=== PATIENT | male | born 1940 | race Caucasian/White ===

== ENCOUNTER 2018-06-06 16:35 | Inpatient (IN) ==
[2018-06-07] MEDS ORDERED: *HR* Dextrose 50 % in Water (Syg) 50 ML SYRINGE IVP PRN (18:31)
[2018-06-07] MEDS ORDERED: Dextrose Gel 15 GM/37.5 ML TUBE PO PRN ×2 (18:31)
[2018-06-07] MEDS ORDERED: D5% in Water 1,000 ML IVC PRN (18:31)
[2018-06-07] MEDS: Insulin LISPRO 300 UNITS/3 ML VIAL SQ SCH (22:37)
[2018-06-08 05:44] LABS: Basophils % 0.4 %; Eosinophils # 0.4 K/mcL (0.0-0.6); Eosinophils % 3.2 %; Hematocrit 29.9 % (37.5-50.1); Hemoglobin 9.2 g/dL (12.9-16.9); Immature Granulocytes % 0.6 % (0-4); Lymphocytes # 0.7 K/mcL (0.6-4.6); Lymphocytes % 6.6 %; Mean Corpuscular HGB Conc 30.8 g/dL (31.6-35.5); Mean Corpuscular Hemoglobin 27.5 pg (28.0-33.3); Mean Corpuscular Volume 89.3 fL (83.0-100.0); Mean Platelet Volume 11.4 fL (9.4-12.4); Monocytes # 1.6 K/mcL (0.0-1.3); Monocytes % 14.5 %; Neutrophils # 8.3 K/mcL (1.6-8.9); Platelet Count 251 K/mcL (140-400); Red Blood Count 3.35 M/mcL (4.19-5.50); Red Cell Distribution Width 16.1 % (11.5-14.5); Segmented Neutrophils % 74.7 %
[2018-06-08 05:49] LABS: INR 1.2; Prothrombin Time 13.8 Seconds (9.4-12.1)
[2018-06-08 06:01] LABS: Alanine Aminotransferase 27 Units/L (7-52); Albumin 3.4 g/dL (3.5-5.7); Alkaline Phosphatase 262 Units/L (34-104); Aspartate Amino Transferase 22 Units/L (13-39); BUN/Creatinine Ratio 41 (6-26); Bilirubin,Total 0.8 mg/dL (0.3-1.0); Blood Urea Nitrogen 43 mg/dL (8-23); Calcium 9.7 mg/dL (8.6-10.3); Carbon Dioxide 36 mEq/L (23-29); Chloride 95 mEq/L (98-107); Globulin 3.5 g/dL (2.4-3.5); Glucose 107 mg/dL (70-105); Osmolality,Calculated 295 (280-300); Potassium 4.3 mEq/L (3.5-5.1); Sodium 137 mEq/L (136-145); Total Protein 6.9 g/dL (6.4-8.9); eGFR For African Americans > 60 (> 60); eGFR For Non-African Americans > 60 (> 60)
[2018-06-08] MEDS: Insulin LISPRO 300 UNITS/3 ML VIAL SQ SCH ×4 (08:03→21:08)
[2018-06-08] MEDS: Furosemide 40 MG TABLET PO SCH (08:17)
[2018-06-08] MEDS: *HR* Metformin 500 MG TABLET PO SCH ×2 (08:17→17:29)
[2018-06-08] MEDS: Ascorbic Acid 500 MG TABLET PO SCH (08:17)
[2018-06-08] MEDS: *HR* Enoxaparin 40 MG/0.4 ML SYRINGE SQ SCH (08:18)
[2018-06-08] MEDS: Multivit/Ca/Min/Fe/FA 1 TAB TABLET PO SCH (08:18)
[2018-06-08] MEDS ORDERED: hydroCHLOROthiazide 25 MG TABLET PO SCH (09:00)
--- NOTE | 2018-06-08 15:55 | Internal Med History&Physical ---
Date of Encounter: 06/08/18 Time of Encounter: 15:42 Assessment and Plan (1) Splenic laceration Current visit: Yes Status: Acute Improving. He is decreased in his physical reserve and will continue with resumption of same. We will consult occupational and physical therapy. Will need to make sure that he has received Pneumovax at some point. Plan for surgery is to have about 14 days before he resumes Coumadin and then 4 days later, discontinue Lovenox. Qualifiers: Encounter type: subsequent encounter Qualified Code(s): S36.039D - Unspecified laceration of spleen, subsequent encounter (2) Atrial fibrillation Current visit: Yes Status: Acute On chronic Coumadin. He apparently has unknown heart failure but will try to find this out from Dr. Childress office. Will check digoxin level in a few days, to see if he is on enough. May need to return to his home dose. Qualifiers: Atrial fibrillation type: chronic Qualified Code(s): I48.2 - Chronic atrial fibrillation (3) Sleep apnea Current visit: Yes Status: Acute Treated with BiPAP, as above and oxygen bleed in at 3 L/m. Qualifiers: Sleep apnea type: unspecified type Qualified Code(s): G47.30 - Sleep apnea , unspecified (4) Pulmonary hypertension Current visit: Yes Status: Acute This sounds related to sleep apnea only but will investigate as possible and follow up with primary M.D. (5) Type 2 diabetes mellitus Current visit: Yes Status: Acute Qualifiers: Diabetes mellitus group home insulin use: without termite renewal inspector use Diabetes mellitus complication status: without complication Qualified Code(s): E11.9 - Type 2 diabetes mellitus without complications (6) Essential hypertension Current visit: Yes Status: Acute We will investigate use of losartan for same. Will follow clinically. (7) Anemia Current visit: Yes Status: Acute This sounds chronic but may be exacerbated by renal insufficiency and by acute blood loss. He probably needs to have a follow-up colonoscopy and I deferred this to primary care physician. Qualifiers: Anemia type: unspecified type Qualified Code(s): D64.9 - Anemia, unspecified (8) Chronic renal insufficiency Current visit: Yes Status: Acute Currently, stage II. Will need to follow and may resolve as he improves in general function. Qualifiers: Chronic kidney disease stage: stage 2 (mild) Qualified Code(s): N18.2 - Chronic kidney disease, stage 2 (mild) (9) Protein calorie malnutrition Current visit: Yes Status: Acute Caused by his acute illness and ileus. Will ask nutrition to evaluate him and consider supplements. Qualifiers: Protein-calorie malnutrition severity: mild Qualified Code(s): E44.1 - Mild protein-calorie malnutrition (10) History of rectal cancer Current visit: Yes Status: Acute Colostomy care per patient. Seemingly, this is stable at current time. Internal Medicine - H&P: HPI Chief complaint: Status post splenic laceration. Admitted From: Home Plans for Post Hospital Care: Home History of present illness: Mr. Hernandez is a 78 year old male who was on Coumadin for A. fib when he tripped at home and was subsequently found to have a splenic laceration. He was transferred from [facility] to [facility] where he underwent an interventional radiology splenic embolization. Coumadin was held. Vitamin K was used to reverse his Coumadin. His postoperative course was complicated by ileus which was treated with low dose but frequent Reglan and erythromycin. This resolved. His anemia worsened while hospitalized and he required 2 units of packed red blood cells. He had a urinary tract infection but this was treated with antibiotics and resolved. He is now transferred to resume home activities with physical therapy, occupational and recreational therapies. Past medical history is reviewed and consist of: Atrial fibrillation for about 10 years, treated with Coumadin. 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 No known valvular complication but he has been noted to have chronic venous stasis as a result. He has CHF or chronic venous stasis treated with Lasix, which he uses on average about one third of the time. He is also on hydrochlorothiazide. There is some question about whether the hydrochlorothiazide was held at his hospitalization. He has hypertension treated with a terminal and losartan although apparently of the losartan has been held while hospitalized. He knows of no splenomegaly or abnormal blood count other than he has had a low hemoglobin for years, for which she takes iron. He has not had upper or lower endoscopy for this. He has sleep apnea of about 8 years duration for which he uses BiPAP at night. He is not sure of the settings but has the home unit with him. With this, he uses oxygen at 3 L bled in. He has known pulmonary hypertension but it is been several years since his last polysomnogram. Transferred here from [facility] still on oxygen at 3 L/m, even during the day. Chronic atrial fib, as above, treated with a beta sofia and digoxin. There was question about his dose, especially as this was decreased with renal insufficiency, upon transfer. He is status post: Cancer which was rectal and involves colectomy, colostomy, chemotherapy, and 28 radiation treatments, about 10 years ago. Pulmonary hypertension is apparently related to sleep apnea and has not been assessed for several years and he is told that he does not need follow-up. Diabetes has been under fairly good control with Glucophage only. He "eats whatever he wants" but does have a history of hypoglycemia before his medications were discontinued or decreased to only Glucophage. He has a 35 pack-year smoking history but stopped in 2004 or before. He drank beer occasionally, never heavily, and had no complications; he stopped this in 2005. He denies use of street drugs. He has been for 53 years with to his who he lives with. 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 Past Med Surg Social Fam HX - Past Medical History Medical history: arthritis, atrial fibrillation, cancer, diabetes, hypertension Additional medical history: rectal cancer 2007, pulmonary htn - Past Surgical History Surgical History: cancer surgery, colostomy Additional surgical history: left side colostomy, left knee replacement, bowel resection - Social History Smoking Status: Former smoker - Family History Brother Living Status: Still Living Hx Family Cardiac Disorders: Yes Grandfather Living Status: Hx Family Cardiac Disorders: Yes Mother Living Status: Hx Family Endocrine Disorder: Yes Internal Medicine - H&P: Meds Allopurinol [Zyloprim 300 MG] 300 mg PO DAILY 06/07/18 [History] Ascorbic Acid [Vitamin C] 500 mg PO DAILY 06/07/18 [History] Atenolol [Tenormin] 25 mg PO DAILY 06/07/18 [History] Digoxin [Lanoxin] 0.125 mg PO Q2D 06/07/18 [History] Enoxaparin [Lovenox] 40 mg SQ DAILY 06/07/18 [History] Ferrous Sulfate [Iron] 325 mg PO BID 06/07/18 [History] Furosemide [Lasix] 40 mg PO DAILY 06/07/18 [History] Losartan [Cozaar] 50 mg PO DAILY 06/07/18 [History] Mv-Mn/FA/Vit K/Lycop/Lut/Coq10 [Daily Multivitamin Capsule] 1 each PO DAILY 06/18 [History] Polyethylene Glycol 3350 [MiraLAX] 17 gm PO DAILY PRN 06/07/18 [History] hydroCHLOROthiazide [Hydrochlorothiazide] 25 mg PO DAILY 06/07/18 [History] metFORMIN [Glucophage] 1,000 mg PO BIDWM 06/07/18 [History] 3 Allergy/AdvReac Type Severity Reaction Status Date / Time No Known Allergies Allergy Verified 06/07/18 17:37 All Systems PM: He has early cataracts in his right eye but has not had eye surgery. Patient has no complaint of chest discomfort, dyspnea, orthopnea, breathing problems, palpitations, nausea or vomiting, constipation or diarrhea, other changes in bowel habits, heartburn, difficulty with urination, kidney problems or kidney stones, fevers chills or sweats, rash or itching, seizures, headache or lightheadedness, heat or cold intolerance, blood problems or anemia, or other new complaints, except as mentioned above. Review of systems is otherwise negative. - Constitutional Vitals: Temp Pulse Resp BP Pulse Ox 98.2 F 66 20 124/62 90 06/08/18 11:27 06/08/18 11:27 06/08/18 11:27 06/08/18 11:27 06/08/18 11:27 Exam: Examination: (Except as mentioned above): General: In no apparent distress, alert and oriented 3. Head: Atraumatic and normocephalic. Eyes: Extraocular muscles are intact, pupils equal round and reactive to light and accommodation. Sclerae anicteric. Ears: External ears are normal to inspection and hearing is grossly normal. Nose: Patent without lesion noted. Mouth: No intraoral lesions seen. Dentition is unremarkable. Neck: Supple with trachea midline. There is no thyromegaly or adenopathy and carotids are 2+ without bruit heard. Respiratory: No use of accessory muscles. Lungs are clear throughout. Normal airflow. Cardiovascular: Irregularly irregular rhythm consistent with atrial fib. There is grade 2-3 holosystolic murmur at the left lower sternal border and apex. No S3 is appreciated. Abdomen: Bowel sounds are normal. No hepatosplenomegaly masses or tenderness. Left lower quadrant colostomy is present and seemingly intact; is functioning well. Obese and therefore difficult to palpate deeply. Patient is examined upright in chair and this also limits exam. Extremities: He has no clubbing. He has cyanosis of calves, ankles, toes which appear chronic. He has chronic venous stasis of both sides. He has 2-3+ pitting edema which also appears chronic. Neurological: A and O 3. Cranial nerves II through XII are intact. No focal deficits and no abnormal movements or postures. Skin: Warm and non-diaphoretic with no lesions noted. Breasts, pelvic and rectal: Not examined. Internal Med - H&P Results - Labs CBC & Chem 7: 06/08/18 05:10 06/08/18 05:10 Labs: Short CBC 06/08/18 Range/Units 05:10 WBC 11.1 (4.3-11.1) K/mcL Hgb 9.2 L (12.9-16.9) g/dL Hct 29.9 L (37.5-50.1) % Plt Count 251 (140-400) K/mcL Neutrophils # 8.3 (1.6-8.9) K/mcL BMP 06/08/18 05:10 Sodium 137 Potassium 4.3 Chloride 95 L Carbon Dioxide 36 H BUN 43 H Creatinine 1.05 Glucose 107 H Calcium 9.7 Liver Function 06/08/18 Range/Units 05:10 Total Bilirubin 0.8 (0.3-1.0) mg/dL AST 22 (13-39) Units/L ALT 27 (7-52) Units/L Alkaline Phosphatase 262 H (34-104) Units/L Albumin 3.4 L (3.5-5.7) g/dL
[2018-06-09] MEDS: Insulin LISPRO 300 UNITS/3 ML VIAL SQ SCH ×4 (07:38→22:06)
[2018-06-09] MEDS: *HR* Enoxaparin 40 MG/0.4 ML SYRINGE SQ SCH (07:55)
[2018-06-09] MEDS: Multivit/Ca/Min/Fe/FA 1 TAB TABLET PO SCH (07:55)
[2018-06-09] MEDS: *HR* Metformin 500 MG TABLET PO SCH ×2 (07:55→17:42)
[2018-06-09] MEDS: Ascorbic Acid 500 MG TABLET PO SCH (07:56)
[2018-06-09] MEDS: Furosemide 40 MG TABLET PO SCH (07:56)
[2018-06-09] MEDS: *HR* Digoxin 0.125 MG TABLET PO SCH (08:05)
--- NOTE | 2018-06-09 10:14 | Internal Med Progress Note ---
Date of Encounter: 06/09/18 Time of Encounter: 10:11 - Assessment and plan (1) Splenic laceration Current Visit: Yes Status: Acute Assessment and plan: Clinically stable. We will continue as planned. Qualifiers: Encounter type: subsequent encounter Qualified Code(s): S36.039D - Unspecified laceration of spleen, subsequent encounter (2) Atrial fibrillation Current Visit: Yes Status: Acute Assessment and plan: We will continue on Coumadin and Lovenox, as planned. Qualifiers: Atrial fibrillation type: chronic Qualified Code(s): I48.2 - Chronic atrial fibrillation (3) Sleep apnea Current Visit: Yes Status: Acute Assessment and plan: On home BiPAP, uncertain settings. No complaints. Qualifiers: Sleep apnea type: unspecified type Qualified Code(s): G47.30 - Sleep apnea , unspecified (4) Pulmonary hypertension Current Visit: Yes Status: Acute Assessment and plan: Clinically stable and apparently related to sleep apnea concerned that some of his heart failure could be pulmonary hypertension with increased right-sided pressures. There is no way to assess this while here, except echocardiogram. Will try to reach photovoltaic solar cell designer office, today. (5) Type 2 diabetes mellitus Current Visit: Yes Status: Acute Assessment and plan: Stable, will follow with sliding scale. Qualifiers: Diabetes mellitus detention insulin use: without detention use Diabetes mellitus complication status: without complication Qualified Code(s): E11.9 - Type 2 diabetes mellitus without complications (6) Essential hypertension Current Visit: Yes Status: Acute Assessment and plan: Clinically stable. We will continue home regimen and follow. (7) Anemia Current Visit: Yes Status: Acute Assessment and plan: Stable, will follow. Qualifiers: Anemia type: unspecified type Qualified Code(s): D64.9 - Anemia, unspecified (8) Chronic renal insufficiency Current Visit: Yes Status: Acute Assessment and plan: Still at mild level. Will give extra dose of Lasix, oral, today following. Qualifiers: Chronic kidney disease stage: stage 2 (mild) Qualified Code(s): N18.2 - Chronic kidney disease, stage 2 (mild) (9) Protein calorie malnutrition Current Visit: Yes Status: Acute Assessment and plan: We will continue as planned. Mild. Qualifiers: Protein-calorie malnutrition severity: mild Qualified Code(s): E44.1 - Mild protein-calorie malnutrition (10) History of rectal cancer Current Visit: Yes Status: Acute Assessment and plan: Apparently stable with good ostomy function. - Subjective Interval history: Patient without any complaints. Ostomy is functioning well. Is just getting involved with therapies. Patient has no complaint of chest discomfort, dyspnea, orthopnea, palpitations, nausea or vomiting, constipation or diarrhea, other changes in bowel habits, difficulty with urination, rash or itching, or other new complaints, except as mentioned above. Review of systems is otherwise negative. - Constitutional Vitals: Temp Pulse Resp BP Pulse Ox 98.0 F 68 16 116/65 96 06/09/18 07:25 06/09/18 07:25 06/09/18 07:25 06/09/18 07:25 06/09/18 07:25 Exam: Examination: (Except as mentioned above): General: In no apparent distress. Alert and oriented 3. Nondiaphoretic. Head: Atraumatic and normocephalic. Respiratory: No use of accessory muscles. Lungs are clear throughout. Normal airflow. Cardiovascular: Regular rate and rhythm without murmur appreciated. Abdomen: Bowel sounds are normal. No hepatosplenomegaly mass or tenderness appreciated. Obese and therefore difficult to palpate deeply. Patient is examined upright in chair and this also limits exam. Extremities: No cyanosis or clubbing. Has worsening edema than yesterday. Now 3-4+. Violaceous changes no different from yesterday. Skin: Warm and non-diaphoretic with 2 small stage II decubitus ulcers at sacral region. One is small measuring about 1 x 0.5 x 0.1, at the coccyx. Another is larger and linear with a complement of tear. It is at the coccygeal region but about a centimeter lateral to the coccyx. It measures roughly 3 x 0.5 x 0.2 cm. There is no surrounding erythema or edema to suggest infection. Internal Medicine: Result - Labs CBC & Chem 7: 06/08/18 05:10 06/08/18 05:10 - ABG Interpretation ABG results: PT/INR, D-dimer PT 13.8 Seconds (9.4-12.1) H 06/08/18 05:10 Consult Discharge Plan - Plan Referrals: Alfonso Quiñonez CNP [Primary Care Provider] -
[2018-06-09 10:32] LABS: Bilirubin,Urine Negative (Negative); Blood,Urine Negative (Negative); Clarity,Urine Clear (Clear); Color,Urine Yellow (Yellow); Glucose,Urine (UA) Normal (Normal); Ketones,Urine Negative (Negative); Leukocyte Esterase,Urine Moderate (Negative); Nitrite,Urine Negative (Negative); PH,Urine 5.5 pH Units (5.0-8.0); Protein,Urine Trace mg/dL (Neg-Trace); Urobilinogen,Urine Normal (Normal)
[2018-06-09] MEDS ORDERED: Furosemide 40 MG TABLET PO ONE (10:45)
[2018-06-09 12:15] LABS: Bacteria,Urine Few per hpf (None-Few); Hyaline Casts,Urine Few per lpf (None-Few); Squamous Epithelial Cell,Urine Few per lpf (None-Few)
[2018-06-10] MEDS: Multivit/Ca/Min/Fe/FA 1 TAB TABLET PO SCH (10:05)
[2018-06-10] MEDS: Ascorbic Acid 500 MG TABLET PO SCH (10:05)
[2018-06-10] MEDS: *HR* Metformin 500 MG TABLET PO SCH ×2 (10:05→18:19)
[2018-06-10] MEDS: *HR* Enoxaparin 40 MG/0.4 ML SYRINGE SQ SCH (10:06)
[2018-06-10] MEDS: Insulin LISPRO 300 UNITS/3 ML VIAL SQ SCH ×4 (10:06→21:26)
--- NOTE | 2018-06-10 13:42 | Internal Med Progress Note ---
Date of Encounter: 06/10/18 Time of Encounter: 13:40 - Assessment and plan (1) Atrial fibrillation Current Visit: Yes Status: Acute Assessment and plan: rate and rythm stable. continue current meds. Qualifiers: Atrial fibrillation type: chronic Qualified Code(s): I48.2 - Chronic atrial fibrillation (2) Pulmonary hypertension Current Visit: Yes Status: Acute Assessment and plan: stable. monitor. f/u with cardiology as scheduled (3) Type 2 diabetes mellitus Current Visit: Yes Status: Acute Assessment and plan: controlled. monitor FSBS. continue insulin per sliding scale. will adjust as necessary. Qualifiers: Diabetes mellitus intermodal customer service insulin use: without intermodal customer service use Diabetes mellitus complication status: without complication Qualified Code(s): E11.9 - Type 2 diabetes mellitus without complications (4) Essential hypertension Current Visit: Yes Status: Acute Assessment and plan: controlled with current meds. monitor BP. - Time Spent With Patient less than 15 minutes - Subjective Interval history: participating with therapy. denies SOB with exertion. on RA with O2 sats 96%. denies chest pain, fever, chills, NVD. states swelling in BLE much improved. - Constitutional Vitals: Temp Pulse Resp BP Pulse Ox 98.0 F 72 16 112/64 94 06/10/18 07:11 06/10/18 07:11 06/10/18 07:11 06/10/18 07:11 06/10/18 07:11 General appearance: Present: A&O X 3, pleasant, obese, answers questions appropriately - Head Head exam: Present: atraumatic, normocephalic - Eye Eye exam: Present: PERRL, conjuntiva pink, sclera anicteric Pupils: Present: PERRL - Neck Neck exam general surgery: Present: supple, trachea midline. Absent: lymphadenopathy - Respiratory Respiratory exam: Present: decreased breath sounds, CTAB. Absent: accessory muscle use, rales, rhonchi, wheezes - Cardiovascular Cardiovascular exam: Present: RRR, +S1, +S2. Absent: diastolic murmur, gallop, rubs, systolic murmur - GI/Abdominal GI/Abdominal exam: Present: normal bowel sounds, soft, no peritoneal signs. Absent: distended, tenderness - Extremities Exam Extremities exam: Present: warm, radial pulses palpable and symmetrical. Absent : calf tenderness, cyanotic, pedal edema Additional comments: BLE edema nonpitting, dry and scaly - Neurological Exam Neurological exam: Present: CN II-XII intact, oriented X3, no focal deficits. Absent: pronater drift, facial droop, speech deficit - Skin Skin exam: Present: dry, intact Internal Medicine: Result - Labs CBC & Chem 7: 06/08/18 05:10 06/08/18 05:10 - ABG Interpretation ABG results: PT/INR, D-dimer PT 13.8 Seconds (9.4-12.1) H 06/08/18 05:10 Consult Discharge Plan - Plan Referrals: Alfonso Quiñonez, AIRPORT PLANNER [Primary Care Provider] -
[2018-06-11] MEDS: Insulin LISPRO 300 UNITS/3 ML VIAL SQ SCH ×4 (08:11→20:38)
[2018-06-11] MEDS: Ascorbic Acid 500 MG TABLET PO SCH (08:55)
[2018-06-11] MEDS: *HR* Metformin 500 MG TABLET PO SCH ×2 (08:55→16:51)
[2018-06-11] MEDS: *HR* Enoxaparin 40 MG/0.4 ML SYRINGE SQ SCH (08:55)
[2018-06-11] MEDS: Multivit/Ca/Min/Fe/FA 1 TAB TABLET PO SCH (08:55)
[2018-06-11] MEDS: *HR* Digoxin 0.125 MG TABLET PO SCH (09:04)
--- NOTE | 2018-06-11 13:25 | Internal Med Progress Note ---
Date of Encounter: 06/11/18 Time of Encounter: 13:22 - Assessment and plan (1) Splenic laceration Current Visit: Yes Status: Acute Assessment and plan: No acute issues. She denies any current discomforts. Patient to continue with physical therapy. Continue with current medications. Qualifiers: Encounter type: subsequent encounter Qualified Code(s): S36.039D - Unspecified laceration of spleen, subsequent encounter (2) Atrial fibrillation Current Visit: Yes Status: Chronic Assessment and plan: No acute issues. Patient with irregular heart rate with controlled rate less than 100. We will continue with current medications. Qualifiers: Atrial fibrillation type: chronic Qualified Code(s): I48.2 - Chronic atrial fibrillation (3) Pulmonary hypertension Current Visit: Yes Status: Chronic Assessment and plan: Patient with complaints of dyspnea after ambulating greater than 30 feet. Respiratory effort is relaxed while at rest. Patient continues with supplemental oxygen and will wean O2 to maintain saturation greater than 88%. We will obtain chest x-ray for evaluation. Patient denies any productive cough or fever/chills (4) Type 2 diabetes mellitus Current Visit: Yes Status: Chronic Assessment and plan: No acute issues. We will continue with fingersticks and sliding scale coverage. We will continue with current indication regimen. Qualifiers: Diabetes mellitus rn long term care insulin use: without assisted use Diabetes mellitus complication status: without complication Qualified Code(s): E11.9 - Type 2 diabetes mellitus without complications (5) Essential hypertension Current Visit: Yes Status: Chronic Assessment and plan: Vital signs are stable. We will continue with current medications. - Time Spent With Patient less than 15 minutes - Subjective Interval history: Patient appears relaxed and currently denies any discomforts. Patient has stated that he has slight dyspnea during exertion while in physical therapy. Patient states he has a long history of dyspnea, but usually only becomes short of breath after ambulating 30-50 feet.. Denies any productive cough. Denies fever or chills - Constitutional Vitals: Temp Pulse Resp BP Pulse Ox 97.9 F 83 14 98/57 95 06/11/18 09:00 06/11/18 09:00 06/11/18 09:00 06/11/18 09:00 06/11/18 09:00 General appearance: Present: A&O X 3, pleasant, obese, answers questions appropriately - Head Head exam: Present: atraumatic, normocephalic - Eye Eye exam: Present: PERRL, conjuntiva pink, sclera anicteric Pupils: Present: PERRL - Neck Neck exam general surgery: Present: supple, trachea midline. Absent: lymphadenopathy - Respiratory Respiratory exam: Present: CTAB. Absent: accessory muscle use, rales, rhonchi, wheezes Additional comments: Lungs are clear throughout upper daley and diminished towards bases. Respiratory effort appears relaxed while at rest. Patient denies any productive cough - Cardiovascular Cardiovascular exam: Present: irregular rhythm, RRR, +S1, +S2. Absent: diastolic murmur, gallop, rubs, systolic murmur Additional comments: Heart rate is irregular with controlled rate less than 100 - GI/Abdominal GI/Abdominal exam: Present: normal bowel sounds, soft, no peritoneal signs. Absent: distended, tenderness Additional comments: Colostomy to lower left quadrant with stoma appearing healthy - Extremities Exam Extremities exam: Present: warm, radial pulses palpable and symmetrical. Absent : calf tenderness, cyanotic, pedal edema Additional comments: +1 edema to bilateral lower legs. Noted vascular Steen - Neurological Exam Neurological exam: Present: CN II-XII intact, oriented X3, no focal deficits. Absent: pronater drift, facial droop, speech deficit - Skin Skin exam: Present: dry, intact Internal Medicine: Result - Labs CBC & Chem 7: 06/08/18 05:10 06/08/18 05:10 - ABG Interpretation ABG results: PT/INR, D-dimer PT 13.8 Seconds (9.4-12.1) H 06/08/18 05:10 Consult Discharge Plan - Plan Referrals: Alfonso Quiñonez CNP [Primary Care Provider] -
[2018-06-11] MEDS ORDERED: Furosemide 40 MG/4 ML VIAL IVP SCH (15:45)
[2018-06-11] MEDS ORDERED: Furosemide 40 MG TABLET PO SCH (16:00)
[2018-06-11] MEDS: Melatonin 3 MG TABLET PO SCH (20:37)
[2018-06-12] MEDS: Furosemide 40 MG TABLET PO SCH (06:44)
[2018-06-12] MEDS: *HR* Enoxaparin 40 MG/0.4 ML SYRINGE SQ SCH (09:11)
[2018-06-12] MEDS: *HR* Metformin 500 MG TABLET PO SCH ×2 (09:12→18:17)
[2018-06-12] MEDS: Ascorbic Acid 500 MG TABLET PO SCH (09:12)
[2018-06-12] MEDS: Insulin LISPRO 300 UNITS/3 ML VIAL SQ SCH ×4 (09:12→21:15)
[2018-06-12] MEDS: Multivit/Ca/Min/Fe/FA 1 TAB TABLET PO SCH (09:12)
--- NOTE | 2018-06-12 09:44 | Internal Med Progress Note ---
Date of Encounter: 06/12/18 Time of Encounter: 09:41 - Assessment and plan (1) Pulmonary hypertension Current Visit: Yes Status: Chronic Assessment and plan: Patient with complaints of slight dyspnea after ambulating during therapy, but that his effort has improved. Respiratory effort is relaxed while at rest. Patient continues with supplemental oxygen and will wean O2 to maintain saturation greater than 88%. Chest x-ray was reviewed which showed mild pulmonary edema. Patient started on Lasix this morning and appears to be diuresing well. Denies any productive cough. Denies fever and chills. We will continue with current medications and continue to monitor. Patient to continue with physical therapy (2) Splenic laceration Current Visit: Yes Status: Acute Assessment and plan: No acute issues. She denies any current discomforts. Patient to continue with physical therapy. Continue with current medications. Qualifiers: Encounter type: subsequent encounter Qualified Code(s): S36.039D - Unspecified laceration of spleen, subsequent encounter (3) Atrial fibrillation Current Visit: Yes Status: Chronic Assessment and plan: No acute issues. Patient with irregular heart rate with controlled rate less than 100. We will continue with current medications. Qualifiers: Atrial fibrillation type: chronic Qualified Code(s): I48.2 - Chronic atrial fibrillation (4) Type 2 diabetes mellitus Current Visit: Yes Status: Chronic Assessment and plan: No acute issues. We will continue with fingersticks and sliding scale coverage. Patient's glucose has mostly been less than 150, requiring no sliding scale coverage. We will continue with current indication regimen. Qualifiers: Diabetes mellitus [facility] insulin use: without [facility] use Diabetes mellitus complication status: without complication Qualified Code(s): E11.9 - Type 2 diabetes mellitus without complications (5) Essential hypertension Current Visit: Yes Status: Chronic Assessment and plan: Vital signs are stable. We will continue with current medications. - Time Spent With Patient less than 15 minutes - Subjective Interval history: Patient appears relaxed and currently denies any discomforts. Patient has stated that he continues with slight dyspnea during exertion while in physical therapy, but that it has improved. Patient states that his Lasix this morning has been effective that he has urinated several times. Denies any productive cough. Denies fever or chills - Constitutional Vitals: Temp Pulse Resp BP Pulse Ox 97.6 F 85 16 115/62 92 06/12/18 07:00 06/12/18 07:00 06/12/18 07:00 06/12/18 07:00 06/12/18 07:00 General appearance: Present: A&O X 3, pleasant, obese, answers questions appropriately - Head Head exam: Present: atraumatic, normocephalic - Eye Eye exam: Present: PERRL, conjuntiva pink, sclera anicteric Pupils: Present: PERRL - Neck Neck exam general surgery: Present: supple, trachea midline. Absent: lymphadenopathy - Respiratory Respiratory exam: Present: CTAB, rales. Absent: accessory muscle use, rhonchi, wheezes Additional comments: Lungs are clear throughout upper daley with diminished bases and noted fine posterior bibasilar rales. Respiratory effort appears relaxed while at rest. - Cardiovascular Cardiovascular exam: Present: RRR, +S1, +S2. Absent: diastolic murmur, gallop, rubs, systolic murmur - GI/Abdominal GI/Abdominal exam: Present: normal bowel sounds, soft, no peritoneal signs. Absent: distended, tenderness - Extremities Exam Extremities exam: Present: pedal edema, warm, radial pulses palpable and symmetrical. Absent: calf tenderness, cyanotic Additional comments: Patient continues with +2 pedal edema. Noted vascular Steen lateral lower legs. Right heel with what appears as a stage I breakdown - Neurological Exam Neurological exam: Present: CN II-XII intact, oriented X3, no focal deficits. Absent: pronater drift, facial droop, speech deficit - Skin Skin exam: Present: dry, intact Internal Medicine: Result - Labs CBC & Chem 7: 06/08/18 05:10 06/08/18 05:10 - ABG Interpretation ABG results: PT/INR, D-dimer PT 13.8 Seconds (9.4-12.1) H 06/08/18 05:10 - Impressions Impressions Chest X-Ray 06/11/18 13:37 IMPRESSION: Findings suggest congestive heart failure The findings were sent to the [facility]iology [facility] at 2:20 pm on 06/11/2018to be communicated to a licensed caregiver. D/ / Colton Cade MD / Colton Cade MD Interpreting Provider: Colton Cade MD Consult Discharge Plan - Plan Referrals: Alfonso Quiñonez CNP [Primary Care Provider] -
[2018-06-12] MEDS: Melatonin 3 MG TABLET PO SCH (21:16)
[2018-06-13] MEDS: Furosemide 40 MG TABLET PO SCH (06:27)
[2018-06-13 07:45] VITALS: BP 104/49
[2018-06-13] MEDS: *HR* Metformin 500 MG TABLET PO SCH (08:58)
[2018-06-13] MEDS: Ascorbic Acid 500 MG TABLET PO SCH (08:58)
[2018-06-13] MEDS: *HR* Enoxaparin 40 MG/0.4 ML SYRINGE SQ SCH (08:58)
[2018-06-13] MEDS: Multivit/Ca/Min/Fe/FA 1 TAB TABLET PO SCH (08:58)
[2018-06-13] MEDS: Insulin LISPRO 300 UNITS/3 ML VIAL SQ SCH (08:59)
[2018-06-13] MEDS: *HR* Digoxin 0.125 MG TABLET PO SCH (09:01)
--- NOTE | 2018-06-13 10:36 | Discharge Summary ---
Orders not resulted at time of discharge: Pending orders 06/08/18 06:00 EKG [ECG 12 lead ECG] [ECG] AM 0600 06/16/18 04:00 CMP [Comprehensive Metabolic Panel] MO Complete Blood Count [HEME] MO Prothrombin Time INR [COAG] DAILY 06/17/18 04:00 Prothrombin Time INR [COAG] DAILY 06/18/18 04:00 Prothrombin Time INR [COAG] DAILY 06/19/18 04:00 Prothrombin Time INR [COAG] DAILY 06/20/18 04:00 Prothrombin Time INR [COAG] DAILY 06/21/18 04:00 Prothrombin Time INR [COAG] DAILY 06/22/18 04:00 Prothrombin Time INR [COAG] DAILY 06/23/18 04:00 CMP [Comprehensive Metabolic Panel] MO Complete Blood Count [HEME] MO Prothrombin Time INR [COAG] DAILY 06/24/18 04:00 Prothrombin Time INR [COAG] DAILY 06/25/18 04:00 Prothrombin Time INR [COAG] DAILY 06/30/18 04:00 CMP [Comprehensive Metabolic Panel] MO Complete Blood Count [HEME] MO 07/07/18 04:00 CMP [Comprehensive Metabolic Panel] MO Complete Blood Count [HEME] MO 07/14/18 04:00 CMP [Comprehensive Metabolic Panel] MO Complete Blood Count [HEME] MO 07/21/18 04:00 CMP [Comprehensive Metabolic Panel] MO Complete Blood Count [HEME] MO 07/28/18 04:00 CMP [Comprehensive Metabolic Panel] MO Complete Blood Count [HEME] MO 08/04/18 04:00 CMP [Comprehensive Metabolic Panel] MO Complete Blood Count [HEME] MO 08/11/18 04:00 CMP [Comprehensive Metabolic Panel] MO Complete Blood Count [HEME] MO 08/18/18 04:00 CMP [Comprehensive Metabolic Panel] MO Complete Blood Count [HEME] MO Date of Encounter: 06/13/18 Time of Encounter: 10:33 - Discharge Diagnosis (1) Pulmonary hypertension Priority: Primary Status: Chronic Comments: Patient continues to have complaints of slight shortness of breath during exertion. Patient has required the use of when necessary oxygen while at facility. Chest x-ray was obtained which showed mild pulmonary edema. Patient was started on Lasix. He is to continue with current medications while at home. Patient recommended to follow-up with PCP and pulmonology (2) Splenic laceration Priority: Secondary Status: Acute Comments: No acute issues during stay of facility. Patient participated in physical therapy and progressed well. Patient to continue follow-up with surgeon. Patient will continue on subcutaneous Lovenox per surgery and has been directed to restart his Coumadin on day 14 while being bridged by Lovenox. Patient being referred to Coumadin clinic for further supervision until he is therapeutic. Patient to follow-up with PCP Qualifiers: Encounter type: subsequent encounter Qualified Code(s): S36.039D - Unspecified laceration of spleen, subsequent encounter (3) Atrial fibrillation Priority: Secondary Status: Chronic Comments: No acute issues. Heart rate has remained controlled at less than 100. Patient continues on anticoagulation. Qualifiers: Atrial fibrillation type: chronic Qualified Code(s): I48.2 - Chronic atrial fibrillation (4) Type 2 diabetes mellitus Priority: Secondary Status: Chronic Comments: No acute issues. Patient's glucose was well-controlled less than 170. 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 He should continue with home meds Hospital course: Mr. Hernandez is a 78 year old male, who was on Coumadin for A. fib when he tripped at home and was subsequently found to have a splenic laceration. He was transferred from [facility] to [facility] where he underwent an interventional radiology splenic embolization. Coumadin was held. Vitamin K was used to reverse his Coumadin. His postoperative course was complicated by ileus which was treated with low dose but frequent Reglan and erythromycin. This resolved. His anemia worsened while hospitalized and he required 2 units of packed red blood cells. He had a urinary tract infection but this was treated with antibiotics and resolved Patient was transferred to this facility for deconditioning and has progressed dissipated and physical therapy and progressed well. Patient has had issues with dyspnea, likely due to history of pulmonary hypertension. Patient has used oxygen when necessary. Chest x-ray showed mild pulmonary edema and patient was started on diuretics and stated his respiratory effort has improved. Has remained afebrile during this admission. Patient continues to progress and will be discharged home for continued physical therapy with home health. Patient follow-up with surgeon for management of his splenic laceration. Patient also has atrial fibrillation and remains on anticoagulation. Surgery has instructed patient may restarted on Coumadin on day 14 after discharge and will be bridged with Lovenox. Patient referred to Coumadin clinic for further management of INR until therapeutic. Patient instructed to follow up with surgeon and PCP after discharge. Discharge discussed with: patient - Time Spent with Patient Total time spent providing and/or coordinating discharge services: Less than 30 minutes - Discharge Medications Home Medications: Allopurinol [Zyloprim 300 MG] 300 mg PO DAILY 06/07/18 [History] Ascorbic Acid [Vitamin C] 500 mg PO DAILY 06/07/18 [History] Atenolol [Tenormin] 25 mg PO DAILY 06/07/18 [History] Digoxin [Lanoxin] 0.125 mg PO Q2D 06/07/18 [History] Enoxaparin [Lovenox] 40 mg SQ DAILY 06/07/18 [History] Ferrous Sulfate [Iron] 325 mg PO BID 06/07/18 [History] Furosemide [Lasix] 40 mg PO DAILY 06/07/18 [History] Losartan [Cozaar] 50 mg PO DAILY 06/07/18 [History] Mv-Mn/FA/Vit K/Lycop/Lut/Coq10 [Daily Multivitamin Capsule] 1 each PO DAILY 06/18 [History] Polyethylene Glycol 3350 [MiraLAX] 17 gm PO DAILY PRN 06/07/18 [History] hydroCHLOROthiazide [Hydrochlorothiazide] 25 mg PO DAILY 06/07/18 [History] metFORMIN [Glucophage] 1,000 mg PO BIDWM 06/07/18 [History] Allergies/Adverse Reactions: 3 Allergy/AdvReac Type Severity Reaction Status Date / Time No Known Allergies Allergy Verified 06/07/18 17:37 Date of admission: 06/07/18 18:42 Primary care physician: Alfonso Quiñonez CNP Consults: 06/07/18 18:32 Consult to Physical Medicine/Rehab [CONS] Routine Reason for Consult: Please evaluate and manage therapies' guidelines and recommend pathway to reconditioning. Call Completed: No 06/07/18 18:35 Consult to Occupational Therapy [CONS] Routine Comment: Evaluate, develop and implement POC Reason for Consult: weakness s/p spleen lac. Does patient have active BEDREST order?: No Is patient medically & hemodynamically stable?: Yes Patient assessed for mobility or mobilized this visit?: No Consult to Physical Therapy [CONS] Routine Comment: Evaluate, develop and implement POC Reason for Consult: deconditioning s/p spleen lac. Does patient have active BEDREST order?: No Is patient medically & hemodynamically stable?: Yes Patient assessed for mobility or mobilized this visit?: No Consult to Recreational Therapy [CONS] Routine Comment: Evaluate, develop and implement POC Consult to Pressurizer [CONS] Routine Reason for SW Consult: potential for f/u care 06/08/18 16:35 Consult to Nutrition [CONS] Routine Comment: Consulting Provider: NUTRITION Reason for Dietary Consult: Other Other:: Protein calorie malnutrition 06/09/18 12:33 Consult to Wound Care [CONS] Routine Reason for Consult: pressure ulcer to coccyx Call Completed: No Discharging clinician: Nabeel Cool - Constitutional Vitals: Temp Pulse Resp BP Pulse Ox 98.1 F 74 18 104/49 100 06/13/18 07:00 06/13/18 07:00 06/13/18 07:00 06/13/18 07:00 06/13/18 07:00 General appearance: Present: A&O X 3, pleasant, obese, answers questions appropriately - Head Head exam: Present: atraumatic, normocephalic - Eye Eye exam: Present: PERRL, conjuntiva pink, sclera anicteric Pupils: Present: PERRL - Neck Neck exam general surgery: Present: supple, trachea midline. Absent: lymphadenopathy - Respiratory Respiratory exam: Present: CTAB, rales. Absent: accessory muscle use, rhonchi, wheezes Additional comments: Lungs are clear throughout upper daley but noted diminished breath sounds to lower. Noted fine bibasilar rales to posterior daley. Respiratory effort appears relaxed. No productive cough - Cardiovascular Cardiovascular exam: Present: irregular rhythm, RRR, +S1, +S2. Absent: diastolic murmur, gallop, rubs, systolic murmur Additional comments: Heart rate remains irregular with controlled rate less than 100. - GI/Abdominal GI/Abdominal exam: Present: normal bowel sounds, soft, no peritoneal signs. Absent: distended, tenderness Additional comments: Left lower quadrant colostomy with stoma appearing healthy - Extremities Exam Extremities exam: Present: warm, radial pulses palpable and symmetrical. Absent : calf tenderness, cyanotic, pedal edema - Neurological Exam Neurological exam: Present: CN II-XII intact, oriented X3, no focal deficits. Absent: pronater drift, facial droop, speech deficit - Skin Skin exam: Present: dry, intact - Patient Status Disposition: Home Health Service Condition: Good Functional capacity at discharge: uses cane/walker Overall status at discharge: patient is progressing back to baseline - Discharge Instructions Follow Up With: Alfonso Quiñonez, [employer] [Primary Care Provider] - - Diet and Activity Activity: ambulate only with your walker, as per physical therapy, increase activity as tolerated, resume usual activities as tolerated Diet: diabetic diet, low fat, low cholesterol, low salt diet
--- NOTE | 2018-06-13 10:45 | Physician Discharge Referral ---
Home Health/Hosp Referral Info Transfer to: Home Health Provider in Charge Post Discharge: PCP - Diagnosis (1) Pulmonary hypertension Priority: Secondary Status: Chronic (2) Splenic laceration Priority: Primary Status: Acute (3) Atrial fibrillation Priority: Secondary Status: Chronic (4) Type 2 diabetes mellitus Priority: Secondary Status: Chronic (5) Essential hypertension Priority: Secondary Status: Chronic - Respiratory Orders Oxygen / L per min Smoking Cessation: Smoking cessation has been advised. For more information, call the [place] Tobacco Quit Line at 3-554-MXRW-NOW. - Diet/Nutrition Diet/Nutrition Orders: No Concentrated Sweets - Activity Activity Orders: Up ad jenelle, Walker - Services Needed Following services are medically necessary services: Nursing, Physical Therapy, Occupational Therapy - Transfer Medications Home Medications: Allopurinol [Zyloprim 300 MG] 300 mg PO DAILY 06/07/18 [History] Ascorbic Acid [Vitamin C] 500 mg PO DAILY 06/07/18 [History] Atenolol [Tenormin] 25 mg PO DAILY 06/07/18 [History] Digoxin [Lanoxin] 0.125 mg PO Q2D 06/07/18 [History] Enoxaparin [Lovenox] 40 mg SQ DAILY 06/07/18 [History] Ferrous Sulfate [Iron] 325 mg PO BID 06/07/18 [History] Furosemide [Lasix] 40 mg PO DAILY 06/07/18 [History] Losartan [Cozaar] 50 mg PO DAILY 06/07/18 [History] Mv-Mn/FA/Vit K/Lycop/Lut/Coq10 [Daily Multivitamin Capsule] 1 each PO DAILY 06/18 [History] Polyethylene Glycol 3350 [MiraLAX] 17 gm PO DAILY PRN 06/07/18 [History] hydroCHLOROthiazide [Hydrochlorothiazide] 25 mg PO DAILY 06/07/18 [History] metFORMIN [Glucophage] 1,000 mg PO BIDWM 06/07/18 [History] Allergies/Adverse Reactions: 3 Allergy/AdvReac Type Severity Reaction Status Date / Time No Known Allergies Allergy Verified 06/07/18 17:37 Certification: Further, I certify that my clinical findings support that this patient is homebound (i.e. absences from home require considerable and taxing effort and are for medical reasons or alevism services or infrequently or short duration when for other reasons) because: Homebound Reason: Leaving home requires considerable and taxing effort due to condition Attestation: My signature below is to certify that this patient is under my care and that I, or nurse practitioner, or a physician's phlebotomist medical lab assistant working with me, has a face-to -face encounter with this patient.
[2018-06-22] MEDS ORDERED: Warfarin perPT PO PRN (18:00)
== END 2018-06-13 12:05 | disposition home health service (06) | DRG 945 ==
LOC: INPGRE 06-07 18:42